=== PATIENT | female | born 1990 | race Asian ===

== ENCOUNTER 2020-02-04 13:39 | Emergency (ER) | payer BC ==
[~2020-02-04] VITALS: Ht 167.6 cm; Wt 70.3 kg
[2020-02-04 14:43] LABS: microscopic required? NO
[2020-02-04 14:51] LABS: UA SPECIFIC GRAVITY >=1.030 (1.005-1.035); urine erythrocyte NEGATIVE (NEGATIVE)
[2020-02-04 14:53] LABS: BASOPHIL % 0.6 % (0-2); PLATELET COUNT 178 x10^3mcL (130-400)
[2020-02-04 15:05] LABS: CALCIUM 8.6 mg/dL (8.5-10.1); CARBON DIOXIDE 28.4 mmol/L (21-32); CHLORIDE SERUM 103 mmol/L (98-107); CREATININE SERUM 0.7 mg/dL (0.6-1.0); GFR1 > 60 mL/min; GLUCOSE SERUM 83 mg/dL (74-106); POTASSIUM SERUM 3.8 mmol/L (3.5-5.1); SODIUM SERUM 141 mmol/L (136-145)
[2020-02-04 15:09] LABS: ALBUMIN 3.9 g/dL (3.4-5.0); ALKALINE PHOSPHATASE 75 U/L (46-116); ALT/SGPT 39 U/L (14-59); AST/SGOT 25 U/L (15-37); BILIRUBIN TOTAL 0.2 mg/dL (0.20-1.00); LIPASE 118 IU/L (73-393); TOTAL PROTEIN, SERUM 7.6 g/dL (6.4-8.2)
[2020-02-04 16:58] VITALS: BP 112/70
== END 2020-02-04 16:58 | disposition home or self-care (01) ==
LOC: ED 13:39
PROVIDERS: Emergency Medicine
DX: K59.00 Constipation, unspecified (principal)
CPT/HCPCS: J1885; J7030